=== PATIENT | male | born 1990 | race American Indian/Alaskan Native ===

== ENCOUNTER 2020-06-20 12:29 | Emergency (ER) | payer SELFPAY ==
[2020-06-20] MEDS ORDERED: amLODIPine 5 MG TAB PO ONE (13:04)
[2020-06-20] MEDS ORDERED: hydrALAZINE 100 MG TAB PO ONE (13:04)
--- NOTE | 2020-06-20 13:18 | Emergency Department Report ---
ED Headache HPI - General Chief Complaint: High BP Stated Complaint: HYPERTENSION Time Seen by Provider: 06/20/20 13:01 - History of Present Illness Initial Comments: pt is a 30 yo male who presents to the ED with c/o right temporal headache that began three days ago. he states he has a "headache because his blood pressure is high." he states he last had a physical with his PCP a year ago. he was advised he had kidney deficiency. he states he was on a blood pressure medication but does not know the name of the medication. he states he stopped his medication a year ago secondary to impotence. he states the last two days he has taken someone elses blood pressure medication but does not know the name of it. he denies any vision changes, numbness, weakness, gait disturbance, speech disturbance, cp, SOB, leg swelling. pmhx HTN and CKD, denies any other PMHx. no allergies to meds. Allergies/Adverse Reactions: Allergies No Known Allergies Allergy (Unverified 06/20/20 12:45) Home Medications: Ambulatory Orders Acetaminophen/Codeine [Tylenol /Codeine # 3 tab] 1 tab PO Q6H PRN #10 tab 06/20/20 amLODIPine 10 mg PO DAILY #30 tab 06/20/20 hydroCHLOROthiazide [HCTZ] 25 mg PO QDAY #30 tablet 06/20/20 ED Review of Systems ROS: Stated complaint: HYPERTENSION Other details as noted in HPI Comment: All other systems reviewed and negative ED Past Medical Hx - Past Medical History Hx Hypertension: Yes - Surgical History Past Surgical History?: No - Social History Smoking Status: Never Smoker Substance Use Type: Marijuana - Medications Home Medications: Home Medications Medication Instructions Recorded Confirmed Last Taken Type Acetaminophen/Codeine [Tylenol 1 tab PO Q6H PRN #10 tab 06/20/20 Unknown Rx /Codeine # 3 tab] amLODIPine 10 mg PO DAILY #30 tab 06/20/20 Unknown Rx hydroCHLOROthiazide [HCTZ] 25 mg PO QDAY #30 tablet 06/20/20 Unknown Rx ED Physical Exam - General Limitations: No Limitations General appearance: alert, in no apparent distress - Head Head exam: Present: atraumatic, normocephalic - Eye Eye exam: Present: normal appearance, PERRL, EOMI. Absent: periorbital swel ling, periorbital tenderness Pupils: Present: normal accommodation - ENT ENT exam: Present: mucous membranes moist - Respiratory Respiratory exam: Present: normal lung sounds bilaterally. Absent: respiratory distress, wheezes, rales, rhonchi, stridor, chest wall tenderness, accessory muscle use, decreased breath sounds, prolonged expiratory - Cardiovascular Cardiovascular Exam: Present: regular rate, normal rhythm, normal heart sounds. Absent: systolic murmur, diastolic murmur, rubs, gallop - Neurological Exam Neurological exam: Present: alert, oriented X3, CN II-XII intact, normal gait. Absent: motor sensory deficit - Psychiatric Psychiatric exam: Present: normal affect, normal mood - Skin Skin exam: Present: warm, dry, intact ED Course Vital Signs 06/20/20 06/20/20 06/20/20 12:46 14:14 15:46 Temperature 98.3 F Pulse Rate 91 H 91 H 80 Respiratory 18 Rate Blood Pressure 201/141 201/141 213/127 Blood Pressure [Left] O2 Sat by Pulse 100 Oximetry 06/20/20 06/20/20 06/20/20 17:38 17:45 17:54 Temperature Pulse Rate 82 76 84 Respiratory 16 13 Rate Blood Pressure 197/120 189/127 Blood Pressure [Left] O2 Sat by Pulse 99 99 Oximetry 06/20/20 06/20/20 06/20/20 18:01 18:15 18:31 Temperature Pulse Rate 83 92 H 85 Respiratory 17 20 13 Rate Blood Pressure 189/127 194/128 194/128 Blood Pressure [Left] O2 Sat by Pulse 99 100 100 Oximetry 06/20/20 06/20/20 06/20/20 18:45 19:01 19:25 Temperature Pulse Rate 73 92 H Respiratory 12 12 Rate Blood Pressure 186/128 191/121 191/121 Blood Pressure [Left] O2 Sat by Pulse 99 100 100 Oximetry 06/20/20 06/20/20 19:29 20:04 Temperature Pulse Rate 81 81 Respiratory 14 16 Rate Blood Pressure Blood Pressure 196/127 185/122 [Left] O2 Sat by Pulse 100 99 Oximetry ED Medical Decision Making - Lab Data Result diagrams: 06/20/20 13:28 06/20/20 13:28 Lab Results 06/20/20 06/20/20 06/20/20 Range/Units 13:28 13:28 Unknown WBC 9.8 (4.5-11.0) K/mm3 RBC 5.65 H (3.65-5.03) M/mm3 Hgb 16.7 H (11.8-15.2) gm/dl Hct 47.8 H (35.5-45.6) % MCV 85 (84-94) fl MCH 30 (28-32) pg MCHC 35 H (32-34) % RDW 14.6 (13.2-15.2) % Plt Count 165 (140-440) K/mm3 Lymph % (Auto) 15.5 (13.4-35.0) % [place] % (Auto) 6.5 (0.0-7.3) % Eos % (Auto) 0.2 (0.0-4.3) % Baso % (Auto) 0.6 (0.0-1.8) % Lymph # (Auto) 1.5 (1.2-5.4) K/mm3 [place] # (Auto) 0.6 (0.0-0.8) K/mm3 Eos # (Auto) 0.0 (0.0-0.4) K/mm3 Baso # (Auto) 0.1 (0.0-0.1) K/mm3 Seg Neutrophils % 77.2 H (40.0-70.0) % Seg Neutrophils # 7.6 (1.8-7.7) K/mm3 Sodium 136 L (137-145) mmol/L Potassium 3.3 L (3.6-5.0) mmol/L Chloride 91.9 L (98-107) mmol/L Carbon Dioxide 29 (22-30) mmol/L Anion Gap 18 mmol/L BUN 14 (9-20) mg/dL Creatinine 1.6 H (0.8-1.3) mg/dL Estimated GFR > 60 ml/min BUN/Creatinine Ratio 9 % Glucose 90 (75-100) mg/dL Calcium 9.6 (8.4-10.2) mg/dL Total Bilirubin 1.20 (0.1-1.2) mg/dL AST 15 (5-40) units/L ALT 14 (7-56) units/L Alkaline Phosphatase 57 (35-129) units/L Total Protein 8.1 (6.3-8.2) g/dL Albumin 4.9 (3.9-5) g/dL Albumin/Globulin Ratio 1.5 % Urine Color Yellow (Yellow) Urine Turbidity Clear (Clear) Urine pH 6.0 (5.0-7.0) Ur Specific [place] 1.011 (1.003-1.030) Urine Protein 100 mg/dl (Negative) mg/dL Urine Glucose (UA) Neg (Negative) mg/dL Urine Ketones 20 (Negative) mg/dL Urine Blood Sm (Negative) Urine Nitrite Neg (Negative) Urine Bilirubin Neg (Negative) Urine Urobilinogen < 2.0 (<2.0) mg/dL Ur Leukocyte Esterase Neg (Negative) Urine WBC (Auto) 2.0 (0.0-6.0) /HPF Urine RBC (Auto) 22.0 (0.0-6.0) /HPF U Epithel Cells (Auto) < 1.0 (0-13.0) /HPF Urine Bacteria (Auto) 1+ (Negative) /HPF Urine Mucus Few /HPF Vital Signs 06/20/20 06/20/20 06/20/20 12:46 14:14 15:46 Temperature 98.3 F Pulse Rate 91 H 91 H 80 Respiratory 18 Rate Blood Pressure 201/141 201/141 213/127 Blood Pressure [Left] O2 Sat by Pulse 100 Oximetry 06/20/20 06/20/20 06/20/20 17:38 17:45 17:54 Temperature Pulse Rate 82 76 84 Respiratory 16 13 Rate Blood Pressure 197/120 189/127 Blood Pressure [Left] O2 Sat by Pulse 99 99 Oximetry 06/20/20 06/20/20 06/20/20 18:01 18:15 18:31 Temperature Pulse Rate 83 92 H 85 Respiratory 17 20 13 Rate Blood Pressure 189/127 194/128 194/128 Blood Pressure [Left] O2 Sat by Pulse 99 100 100 Oximetry 06/20/20 06/20/20 06/20/20 18:45 19:01 19:25 Temperature Pulse Rate 73 92 H Respiratory 12 12 Rate Blood Pressure 186/128 191/121 191/121 Blood Pressure [Left] O2 Sat by Pulse 99 100 100 Oximetry 06/20/20 06/20/20 19:29 20:04 Temperature Pulse Rate 81 81 Respiratory 14 16 Rate Blood Pressure Blood Pressure 196/127 185/122 [Left] O2 Sat by Pulse 100 99 Oximetry - EKG Data EKG shows normal: sinus rhythm, axis, QRS complexes, ST-T waves Rate: normal - EKG Data 06/20/20 21:49 prolonged QT interval 526 non specific T wave inversion diffuse leads no STEMI - Radiology Data Radiology results: report reviewed Ordering Physician: DEJAH SANCHEZ Date of Service: 06/20/20 Procedure(s): CT head/brain wo con Accession Number(s): [id number] cc: DEJAH SANCHEZ CT head/brain wo con INDICATION: HTN urgency, headache. TECHNIQUE: Routine CT head. All CT scans at this location are performed using CT dose reduction for ALARA by means of automated exposure control. COMPARISON: None. FINDINGS: Intracranial: Armstrong-white matter differentiation is maintained. No intracranial hemorrhage. No extra axial collection. No hydrocephalus. No herniation. Sinuses: Paranasal sinuses and mastoid air cells are essentially clear. Orbits: Globes are intact. Calvarium: No acute fracture. IMPRESSION: 1. No acute intracranial abnormality. Signer Name: Paul Carrizales MD Signed: 06/20/2020 5:06 PM Workstation Name: [id number] Transcribed By: CS Dictated By: Paul Carrizales MD Electronically Authenticated By: Paul Carrizales MD Signed Date/Time: 06/20/201705 DD/ 04 TD/TT: Print Cancel - Medical Decision Making pt is a 30 yo male who presents to the ED with c/o right temporal headache that began three days ago. he states he has a "headache because his blood pressure is high." he states he last had a physical with his PCP a year ago. he was advised he had kidney deficiency. he states he was on a blood pressure medication but does not know the name of the medication. he states he stopped his medication a year ago secondary to impotence. he states the last two days he has taken someone elses blood pressure medication but does not know the name of it. he denies any vision changes, numbness, weakness, gait disturbance, speech disturbance, cp, SOB, leg swelling. pmhx HTN and CKD, denies any other PMHx. no allergies to meds. Initial vitals with significantly elevated blood pressure, prior to discharge blood pressure has improved to 185/122. Labs with mild hypokalemia, repleted with K-Dur, otherwise labs are stable. UA without evidence of UTI. CT head 1. No acute intracranial abnormality. Patient has no focal neuro deficits on exam. Patient given p.o. medications and headache improved but blood pressure remained elevated. Patient given 10 mg of IV labetalol and blood pressure with mild improvement. Discussed case with Dr. Pollard, ER attending who states that to start patient back on blood pressure me dication, discuss strict return precautions with patient, discussed lifestyle modifications. I discussed lifestyle modifications and return precautions in detail with patient, I discussed smoking cessation. 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 Patient given prescription for amlodipine, hydrochlorothiazide, Tylenol with codeine. Advised patient Please take medication as prescribed. Please keep a blood pressure log and take your blood pressure twice a day and take this to the primary care doctor. Increase your water intake. Eat a low-sodium diet. Incorporate 30 to 60 minutes of da arthur exercise. Please stop smoking. Follow-up with your primary care doctor. Return to emergency room for new or worsening symptoms. Critical care attestation.: If time is entered above; I have spent that time in minutes in the direct care of this critically ill patient, excluding procedure time. ED Disposition Clinical Impression: Hypertensive urgency, Non compliance w medication regimen, Tobacco abuse Disposition: DC-01 TO HOME OR SELFCARE Is pt being admited?: No Does the pt Need Aspirin: No Condition: Stable Instructions: Hypertension, Adult, [id number], Managing Your Hypertension, Steps to Quit Smoking Additional Instructions: Please take medication as prescribed. Please keep a blood pressure log and take your blood pressure twice a day and take this to the primary care doctor. Increase your water intake. Eat a low-sodium diet. Incorporate 30 to 60 bijal tammy of daily exercise. Please stop smoking. Follow-up with your primary care doctor. Return to emergency room for new or worsening symptoms. Prescriptions: amLODIPine 10 mg PO DAILY #30 tab hydroCHLOROthiazide [HCTZ] 25 mg PO QDAY #30 tablet Acetaminophen/Codeine [Tylenol /Codeine # 3 tab] 1 tab PO Q6H PRN #10 tab PRN Reason: Pain , Severe (7-10) Referrals: PRIMARY MD GIGI [Primary Care Provider] - 2-3 Days REESE GRAHAM MD [Staff Physician] - 2-3 Days [facility] [Provider Group] - 2-3 Days Time of Disposition: 19:34 Print Language: CITIZEN OF [place]
[2020-06-20 13:55] LABS: Bacteria,Urine 1+ /HPF (Negative); Bilirubin,Urine NEG (Negative); Blood,Urine SM (Negative); Color,Urine Yellow (Yellow); Mucus,Urine FEW /HPF; Urobilinogen,Urine < 2.0 mg/dL (<2.0)
[2020-06-20 14:02] LABS: Alanine Aminotransferase 14 units/L (7-56); Albumin 4.9 g/dL (3.9-5); BUN/Creatinine Ratio 9; Blood Urea Nitrogen 14 mg/dL (9-20); Calcium 9.6 mg/dL (8.4-10.2); Hemolysis Index 5
[2020-06-20] MEDS ORDERED: POTASSIUM CHLORIDE ER 20 MEQ TAB PO ONE (14:26)
[2020-06-20 14:30] LABS: Basophils # (Auto) 0.1 K/mm3 (0.0-0.1); Basophils % (Auto) 0.6 % (0.0-1.8); Eosinophils % (Auto) 0.2 % (0.0-4.3); Hematocrit 47.8 % (35.5-45.6); Hemoglobin 16.7 gm/dl (11.8-15.2); Lymphocytes # (Auto) 1.5 K/mm3 (1.2-5.4); Lymphocytes % (Auto) 15.5 % (13.4-35.0); Mean Corpuscular HGB Conc 35 % (32-34); Mean Corpuscular Volume 85 fl (84-94); Monocytes # (Auto) 0.6 K/mm3 (0.0-0.8); Monocytes % (Auto) 6.5 % (0.0-7.3); Platelet Count 165 K/mm3 (140-440); Red Blood Count 5.65 M/mm3 (3.65-5.03); Red Cell Distribution Width 14.6 % (13.2-15.2)
[2020-06-20] MEDS ORDERED: ACETAMINOPHEN 325 MG TAB PO ONE (14:39)
[2020-06-20] MEDS ORDERED: cloNIDine 0.2 MG TAB PO ONE (15:37)
[2020-06-20] MEDS ORDERED: HYDROcodone/ACETAMINOPHEN 5-325 MG TAB PO ONE (15:37)
--- NOTE | 2020-06-20 17:10 | Cat Scan Report ---
CT head/brain wo con INDICATION: HTN urgency, headache. TECHNIQUE: Routine CT head. All CT scans at this location are performed using CT dose reduction for A LUCY by means of automated exposure control. COMPARISON: None. FINDINGS: Intracranial: Armstrong-white matter differentiation is maintained. No intracranial hemorrhage. No extra a xial collection. No hydrocephalus. No herniation. Sinuses: Paranasal sinuses and mastoid air cells are essentially clear. Orbits: Globes are intact. Calvarium: No acute fracture. IMPRESSION: 1. No acute intracranial abnormality. Signer Name: Paul Carrizales MD Signed: 06/20/2020 5:06 PM Workstation Name: [id number]
[2020-06-20] MEDS ORDERED: ONDANSETRON 4 MG/2 ML INJ IV ONE (17:53)
[2020-06-20 20:05] VITALS: BP 185/122
== END 2020-06-20 20:04 | disposition home or self-care (01) ==
LOC: ED 12:29
DX: I16.0 Hypertensive urgency (principal); I10 Essential (primary) hypertension; F12.90 Cannabis use, unspecified, uncomplicated; Z91.14 Patient's other noncompliance with medication regimen; Z72.0 Tobacco use; Z79.899 Other long term (current) drug therapy
CPT/HCPCS: 36415; 70450; 80053; 81001; 85025; 93005; 96374; 96375; 99284; J2405